=== PATIENT | female | born 1935 | race Caucasian/White ===

== ENCOUNTER 2024-07-16 14:05 | Emergency (ER) | payer OTHER, MEDICAID ==
[~2024-07-16] VITALS: Ht 160 cm; Wt 55.0 kg
[2024-07-16 14:09] VITALS: O2SAT 99
[2024-07-16 17:14] LABS: CHLORIDE 105 mEq/L (98-107); SODIUM 132 mEq/L (136-145)
[2024-07-16 17:15] LABS: CARBON DIOXIDE 23 mEq/L (21-32)
[2024-07-16 17:16] LABS: CALCIUM 7.9 mg/dL (8.7-10.4)
[2024-07-16 17:20] LABS: CREATININE 1.2 mg/dL (0.6-1.0); GLUCOSE 96 mg/dL (70-105)
[2024-07-16 17:21] LABS: UREA NITROGEN BLOOD 23 mg/dL (9-23)
[2024-07-16 17:24] LABS: TROPONIN I HIGH SENSITIVITY 14 ng/L (3.0-34)
[2024-07-16 17:25] LABS: POTASSIUM 6.7 mEq/L (3.5-5.1)
[2024-07-16] MEDS ORDERED: FUROSEMIDE 40MG/4ML VIAL IV NR (18:09)
[2024-07-16] MEDS ORDERED: FUROSEMIDE 100MG/10ML VIAL IV STA (18:09)
[2024-07-16] MEDS ORDERED: ALBUTEROL (0.083%) 2.5MG/3ML NEB HHN ONE (18:15)
[2024-07-16] MEDS: DEXTROSE 50% WATER 50ML SYRINGE IV ONE (18:40)
[2024-07-16] MEDS: SODIUM ZIRCONIUM CYCLOSILICATE 10GM/PACKET PO ONE (18:40)
[2024-07-16] MEDS: INSULIN REGULAR (HUMULIN R) 1000UNITS/10ML VIAL IV ONE (18:44)
[2024-07-16 20:02] LABS: CHLORIDE 105 mEq/L (98-107); SODIUM 133 mEq/L (136-145)
[2024-07-16 20:03] LABS: CALCIUM 7.8 mg/dL (8.7-10.4); CARBON DIOXIDE 22 mEq/L (21-32)
[2024-07-16 20:06] LABS: INR 1.4
[2024-07-16 20:08] LABS: CREATININE 1.1 mg/dL (0.6-1.0); GLUCOSE 80 mg/dL (70-105); UREA NITROGEN BLOOD 22 mg/dL (9-23)
[2024-07-16 20:10] LABS: ALANINE AMINOTRANSFERASE 18 IU/L (10-49); ALBUMIN 2.8 g/dL (3.2-4.8); ASPARTATE AMINOTRANSFERASE 77 IU/L (<34); BILIRUBIN TOTAL 5.5 mg/dL (0.1-1.0); PROTEIN TOTAL 6.5 g/dL (6.0-8.3)
[2024-07-16 20:22] LABS: BASOPHILS % 0.8 % (0.0-2.0); EOSINOPHILS % 0.1 % (0.0-5.0); LYMPHOCYTES % 18.4 % (20.0-50.0); MEAN CORPUSCULAR HEMOGLOBIN 49.8 pg (28.0-32.0); MEAN CORPUSCULAR VOLUME 125.6 fL (81.0-99.0); MEAN PLATELET VOLUME 7.6 fl (7.4-10.4); MONOCYTES % 9.5 % (2.0-8.0); NEUTROPHILS % 71.2 % (40.0-76.0); PLATELET 185 x1000/uL (130-400); RED BLOOD CELL COUNT 1.37 mill/uL (4.2-5.4); RED CELL DISTRIBUTION WIDTH 18.1 % (11.6-14.6)
[2024-07-16 20:40] LABS: DIFFERENTIAL COMMENT 1; HEMATOCRIT. 17.3 % (36.0-48.0); HEMOGLOBIN. 6.8 g/dL (12.0-16.0); MEAN CORPUSCULAR HGB CONC 39.7 g/dL (31.0-37.0)
[2024-07-16 20:41] LABS: ADD RBC MORPHOLOGY YES; PLATELET ESTIMATE NORMAL
[2024-07-16 20:42] LABS: ROULEAUX 2+
[2024-07-17] MEDS ORDERED: SODIUM CHLORIDE 0.9% 1,000 ML IV SCH
[2024-07-17] MEDS ORDERED: ONDANSETRON HCL 4MG/2ML INJ IV PRN
[2024-07-17] MEDS ORDERED: ACETAMINOPHEN 325MG TABLET PO PRN
[2024-07-17] MEDS ORDERED: MAGNESIUM/ALUMINUM HYDROXIDE/SIMETHICONE 30ML UDC PO PRN
[2024-07-17] MEDS ORDERED: CLONIDINE 0.1MG TABLET PO PRN
[2024-07-17 02:20] VITALS: BP 112/42; PULSE 65; RESP 14; TEMP 36.66960; O2SAT 100
[2024-07-17] MEDS ORDERED: PANTOPRAZOLE SODIUM 40 MG/VIAL IV SCH (09:00)
== END 2024-07-17 02:47 | disposition short-term general hospital (02) ==
LOC: ER 14:05 → EDBEDREQSVC 22:19 → EDBEDREQTM 22:19 → EDBEDREQ 22:19 → ER 07-17 02:47
DX: D64.9 Anemia, unspecified (principal); E87.5 Hyperkalemia; R53.1 Weakness; I10 Essential (primary) hypertension; Z79.899 Other long term (current) drug therapy; Z88.2 Allergy status to sulfonamides
CPT/HCPCS: 99291; 96374; 70450; 96375; 80053; 82962; 83880; 83735; 85025; 85610; 84484; 36415; 71045; 93005; 93970; 80048; J1815; 86850; 86900; 86920; 99285; J1940